=== PATIENT | female | born 1995 | race African-American/Black ===

== ENCOUNTER 2016-09-22 20:59 | Emergency (ER) ==
[2016-09-22] MEDS ORDERED: ATIVAN PO ONE (21:12)
--- NOTE | 2016-09-22 21:15 | PROVIDER DOCUMENTATION ---
HPI-Respiratory General - General Source: patient - History of Present Illness-Resp Quality of Pain: reports: none Severity in ED: reports: severe Onset/Duration: reports: just prior to arrival Timing: reports: still present Context: denies: recent foreign travel, sports/exercise Exposure: reports: unknown cause Cough Quality/Degree: reports: no cough Episode Frequency: no prior episodes Current Respiratory Medication Therapy: Initiated none Associated Symptoms: reports: shortness of breath. denies: cough, fever/chills , hurts to breathe Similar Symptoms Previously?: No Recently seen or treated by another doctor?: No <Jose Bautista - Last Filed: 09/22/16 21:11> <James Hensley - Last Filed: 09/22/16 22:14> - General Stated Complaint: SOB Time Seen by Provider: 09/22/16 21:11 Allergies/Adverse Reactions: Patient Allergies Allergy/AdvReac Type Severity Reaction Status Date / Time guaifenesin [From Robitussin] Allergy HIVES Verified 09/22/16 21:12 - History of Present Illness-Resp Nature of Presenting Problem: 20 y/o F presents to the ED by EMS with SOB. Sister states they were at [facility] when this began and she started breathing very fast then collapsed into her arms. (Jose Bautista) Review of Systems - Adult - REVIEW OF SYSTEMS - ADULT Constitutional: denies: chills, fever Eyes: reports: no symptoms reported Ears, Nose, Mouth & Throat: reports: no symptoms reported Cardiovascular: reports: no symptoms reported Respiratory: reports: shortness of breath. denies: cough, wheezing Gastrointestinal: reports: no symptoms reported Genitourinary: reports: no symptoms reported Musculoskeletal: reports: no symptoms reported Integumentary: reports: no symptoms reported Neurological: reports: other (collapsed). denies: dizziness/vertigo, headache/ migraines, loss of balance, slurred speech Psychiatric: reports: no symptoms reported Endocrine: reports: no symptoms reported Hematologic/Lymphatic: reports: no symptoms reported Allergic/Immunologic: reports: no symptoms reported All Other Systems: Reviewed and Negative <Jose Bautista - Last Filed: 09/22/16 21:11> Past History - Adult - PAST MEDICAL HISTORY-ADULT Review of Records: reports: Old Records Reviewed, Nursing Assessment Review, Medications Reviewed Major Childhood Illnesses: reports: denies history Cardiovascular: reports: denies history Respiratory: reports: denies history Other Conditions: reports: denies history - PRIOR SURGERIES/PROCEDURES Surgical/Procedure History: reports: none - PRIOR HOSPITALIZATIONS Prior Hospitalizations: reports: none - IMMUNIZATION STATUS Childhood Immunizations: See Nurse Assessment Flu Vaccine: See Nurse Assessment - FAMILY HISTORY Family History: reviewed, not pertinent - SOCIAL HISTORY Smoking: non-smoker Living Situation: family <Jose Bautista - Last Filed: 09/22/16 21:11> Physical Exam-General - PHYSICAL EXAM-ADULT Initial Vital Signs Reviewed: Yes - CONSTITUTIONAL General Appearance: appears well, alert, no apparent distress - EYES Eyes: PERRL/EOMI, pink conjunctivae - HEAD, EARS, NOSE, MOUTH & THROAT HENMT: moist mucous membranes, TMs normal, pharynx normal - NECK Neck: non-tender, full range of motion, supple, normal inspection - RESPIRATORY Respiratory: lungs clear, normal breath sounds, no respiratory distress, no accessory muscle use, increased rate - CARDIOVASCULAR Cardiovascular: normal peripheral pulses, regular rate, rhythm - GASTROINTESTINAL (ABDOMEN) Abdominal Exam: normal bowel sounds, non tender, soft - MUSCULOSKELETAL Back Exam: normal inspection, no CVA tenderness, no vertebral tenderness Extremity: normal range of motion, non-tender, normal gait, normal inspection - SKIN Integumentary: normal color, normal turgor, warm/dry - NEUROLOGIC Neurologic: grossly normal, no motor/sensory deficits - PSYCHIATRIC Psych/Mental Status: normal mood/affect, normal thought content, normal thought process, oriented x 3 <Jose Bautista - Last Filed: 09/22/16 21:11> Progress <Jose Bautista - Last Filed: 09/22/16 21:11> <James Hensley - Last Filed: 09/22/16 22:14> - PLAN OF CARE/RESULTS Progress/Plan/Lab Results: Vital Signs - 24 hr 09/22/16 21:00 Temperature 98.3 F Pulse Rate 101 H Respiratory 36 H Rate Blood Pressure 100/63 O2 Sat by Pulse 100 Oximetry (James Hensley) Departure <Jose Bautista - Last Filed: 09/22/16 21:11> - Departure Time of Disposition Order: 22:13 Certified Medical Emergency: Emergent <James Hensley - Last Filed: 09/22/16 22:14> - Departure DIAGNOSIS: Hyperventilating Disposition: HOME 01 Condition: Stable Additional Instructions: ED Follow Up Instructions: You have been treated by a care provider in the Emergency Department. These instructions are being provided to you so you can have an understanding of how to care for yourself upon discharge. Upon discharge from the Emergency Department, you are responsible for making arrangements for follow-up care by a physician of your choice. Take all prescribed medications as directed. Return to the Emergency Department immediately for any new or worsening symptoms. You may call the Physician Referral phone number at [phone] to obtain a list of Physicians who are taking new patients. Attestation - Scribe Verification/Attestation Scribe:: Jose Bautista Acting as Scribe for:: James Hensley Scribe documention review:: This chart was documented by a scribe and accurately reflects the service the provider performed and the decisions made by the provider. <Jose Bautista - Last Filed: 09/22/16 21:11> Physician Attestation
[2016-09-22] MEDS ORDERED: TYLENOL PO ONE (21:31)
[2016-09-22 21:54] LABS: UR AMPHETAMINES QUAL NONE DETECTED (NONE DETECT); UR BARBITUATES QUAL NONE DETECTED (NONE DETECT); UR BENZODIAZEPIN QUAL NONE DETECTED (NONE DETECT); UR CANNABINOIDS QUAL NONE DETECTED (NONE DETECT); UR COCAINE QUAL NONE DETECTED (NONE DETECT); UR MDMA QUAL NONE DETECTED (NONE DETECT); UR METHADONE QUAL NONE DETECTED (NONE DETECT); UR METHAMPHETAMINE QUAL NONE DETECTED (NONE DETECT); UR OPIATES QUAL NONE DETECTED (NONE DETECT); UR OXYCODONE QUAL NONE DETECTED (NONE DETECT); UR PCP QUAL NONE DETECTED (NONE DETECT); UR TCA QUAL NONE DETECTED (NONE DETECT)
[2016-09-22 22:26] VITALS: BP 90/51
== END 2016-09-22 22:27 | disposition home or self-care (01) ==
LOC: P.ED 20:59
DX: R06.4 Hyperventilation (principal); R06.02 Shortness of breath
CPT/HCPCS: 80305; 81025; 99283

== ENCOUNTER 2018-11-06 22:45 | Inpatient (IN) ==
[2018-11-06] MEDS ORDERED: NS 1,000 ML ONE (23:09)
[2018-11-06] MEDS ORDERED: NS 1,000 ML IV ONE (23:11)
[2018-11-06 23:40] LABS: BILIRUBIN URINE NEGATIVE (NEGATIVE); BLOOD URINE 3+ (NEGATIVE); CLARITY SL. CLOUDY (CLEAR); COLOR YELLOW; GLUCOSE URINE NEGATIVE (NEGATIVE); KETONE URINE 3+(Large) mg/dL (NEGATIVE); LEUKOCYTES URINE TRACE (NEGATIVE); NITRITE URINE NEGATIVE (NEGATIVE); PH URINE 6.5; PROTEIN URINE 2+(100 mg/dL) mg/dL (NEGATIVE); SP GRAVITY URINE 1.015; UROBILINOGEN URINE 1 mg/dL
[2018-11-06 23:41] LABS: BASO# 0.01 X1000 (0.0-0.2); BASO% 0.1 % (0.0-0.8); EOS# 0.01 X1000 (0.0-0.7); EOS% 0.1 % (0.0-10.0); HEMATOCRIT 33.9 % (37.0-47.0); HEMOGLOBIN 11.3 g/dL (12.0-16.0); IMM GRAN# 0.02 X1000 (0.0-0.04); IMM GRAN% 0.2 % (0.0-0.5); LYMPH# 0.81 X1000 (1.2-3.4); LYMPH% 7.3 % (20.5-51.1); MCH 30.8 PG (27-31); MCHC 33.3 g/dL (33-37); MCV 92.4 FL (81-99); MONO# 0.81 X1000 (0.11-0.59); MONO% 7.3 % (1.7-9.3); MPV 10.1 FL (7.4-10.4); NEUT# 9.42 X1000 (1.4-6.5); PLT 213 X1000 (130-400); RBC 3.67 XMIL (4.2-5.4); RDW 12.6 % (11.5-14.5); WBC 11.08 X1000 (4.8-10.8)
[2018-11-06] MEDS ORDERED: TYLENOL PO ONE (23:44)
[2018-11-06 23:47] LABS: AGAP 10; ALBUMIN 3.8 g/dL (3.5-5.0); ALKALINE PHOSPHATASE 73 U/L (32-104); BUN 8 mg/dL (8-22); CALCIUM 8.1 mg/dL (8.8-10.2); CHLORIDE 97 mmol/L (98-107); COSMO 262; CREATININE 0.6 mg/dL (0.5-0.9); ESTIMATED GFR > 60; GLUCOSE 121 mg/dL (70-104); GOT 16 U/L (10-30); GPT 12 U/L (10-36); POTASSIUM 3.6 mmol/L (3.5-5.1); SODIUM 131 mmol/L (136-145); TCO2 24 mmol/L (25-35); TOTAL PROTEIN 7.8 g/dL (6.3-8.3); URINE BACTERIA 3+ /HFP; URINE EPITHELIAL CELLS <10 /HPF (<10); URINE WBC <10 /HPF (<10)
[2018-11-06 23:48] LABS: URINE SOURCE CLEAN CATCH
[2018-11-06 23:58] LABS: INFLUENZA A NEGATIVE (NEGATIVE); INFLUENZA B NEGATIVE (NEGATIVE)
[2018-11-07] MEDS ORDERED: NS 1,000 ML IV ONE (00:04)
[2018-11-07] MEDS ORDERED: MOTRIN PO ONE (00:21)
--- NOTE | 2018-11-07 00:32 | PROVIDER DOCUMENTATION ---
This chart was entered by Ynes Dobson Scribe, acting as scribe for Durga Boss CRNP. HPI-General Adult - General Chief Complaint: Flu Symptoms Stated Complaint: FLU LIKE SX Time Seen by Provider: 11/07/18 00:10 Source: patient Allergies/Adverse Reactions: Patient Allergies Allergy/AdvReac Type Severity Reaction Status Date / Time guaifenesin [From Robitussin] Allergy HIVES Verified 11/06/18 23:07 Home Medications: Home Medication List Medication Instructions Recorded Confirmed Last Taken Type Vit #76/Iron,Carb/FA 1 tab PO DAILY 02/15/18 06/13/18 06/12/18 09:00 History [Prenatabs Rx Tablet] Lansoprazole [Prevacid] 30 mg PO DAILY #30 capsule. 06/13/18 Unknown Rx Amoxicillin 500 mg PO TID #30 cap 09/22/18 Unknown Rx Ibuprofen [Motrin] 600 mg PO Q6-8H PRN PRN #30 tab 09/22/18 Unknown Rx Prednisone 20 mg PO BID #10 tab 09/22/18 Unknown Rx - History of Present Illness -Gen Adult Nature of Presenting Problems: pt is a 23 yr old female presenting with 3 day complaint of fever/chills, cough, sore throat, weakness, and body aches. pt denies sick exposures, no improvement with Motrin or Theraflu Location of Pain/Injury: reports: generalized Pain Radiation: reports: no radiation Quality of Pain: reports: aching Severity: reports: moderate Onset/Duration: reports: 3 days ago Timing: reports: still present Context/Activities at Onset: reports: light activity Modifying Factors: improves with: analgesics (motrin-no change), other medication (theraflu-no change) Associated Symptoms: reports: cough, EENT symptoms, fatigue, fever/chills, loss of appetite, muscle aches, weakness. denies: genitourinary problems, vomiting Similar Symptoms Previously?: No Recently seen or treated by another doctor?: No Review of Systems - Adult - REVIEW OF SYSTEMS - ADULT Constitutional: reports: chills, fever, fatique Eyes: denies: discharge, redness Ears, Nose, Mouth & Throat: reports: sinus problem, throat pain. denies: ear pain Cardiovascular: denies: chest pain, palpitations, syncope Respiratory: reports: cough. denies: shortness of breath, wheezing Gastrointestinal: reports: poor appetite. denies: abdominal pain, diarrhea, nausea, vomiting Genitourinary: denies: dysuria, frequency, flank pain Musculoskeletal: reports: muscle aches, muscle weakness. denies: back pain, neck pain Integumentary: denies: itching, rash, skin sores/ulcer Neurological: denies: dizziness/vertigo, headache/migraines, numbness, seizure, syncope Psychiatric: reports: no symptoms reported Endocrine: reports: no symptoms reported Hematologic/Lymphatic: reports: no symptoms reported Allergic/Immunologic: reports: no symptoms reported All Other Systems: Reviewed and Negative Past History - Adult - PAST MEDICAL HISTORY-ADULT Review of Records: reports: Old Records Reviewed, Nursing Assessment Review, Medications Reviewed, Social history reviewed & non-contributory. Major Childhood Illnesses: reports: denies history Cardiovascular: reports: denies history Respiratory: reports: denies history Gastrointestinal: reports: denies history Obstetrical/Gynecological: reports: denies history Genitourinary: reports: denies history Musculoskeletal: reports: denies history Neurological: reports: denies history Psychiatric: reports: denies history Endocrine/Immune: reports: denies history Other Conditions: reports: denies history - PRIOR SURGERIES/PROCEDURES Surgical/Procedure History: reports: none - PRIOR HOSPITALIZATIONS Prior Hospitalizations: reports: none - IMMUNIZATION STATUS Childhood Immunizations: See Nurse Assessment Flu Vaccine: See Nurse Assessment - FAMILY HISTORY Family History: reviewed, not pertinent - SOCIAL HISTORY Living Situation: family Physical Exam-General - PHYSICAL EXAM-ADULT Initial Vital Signs Reviewed: Yes - CONSTITUTIONAL General Appearance: alert, no apparent distress - EYES Eyes: PERRL/EOMI - HEAD, EARS, NOSE, MOUTH & THROAT HENMT: normocephalic/atraumatic, moist mucous membranes, TMs normal, pharyngeal erythema (mild) - NECK Neck: non-tender, full range of motion, supple, normal inspection - RESPIRATORY Respiratory: chest non-tender, lungs clear, normal breath sounds - CARDIOVASCULAR Cardiovascular: normal peripheral pulses, tachycardia - GASTROINTESTINAL (ABDOMEN) Abdominal Exam: normal bowel sounds, non tender, soft - LYMPHATIC Lymphatic: no adenopathy - MUSCULOSKELETAL Back Exam: normal inspection, no CVA tenderness, no vertebral tenderness Extremity: normal range of motion, non-tender, normal inspection - SKIN Integumentary: normal color, normal turgor, other (hot to touch) - NEUROLOGIC Neurologic: grossly normal, no motor/sensory deficits - PSYCHIATRIC Psych/Mental Status: normal mood/affect Progress - PLAN OF CARE/RESULTS Progress/Plan/Lab Results: Vital Signs - 8 hr 11/06/18 23:03 11/06/18 23:47 Temperature 103.2 F H Pulse Rate 132 H 125 H Respiratory Rate 26 H 19 Blood Pressure 86/40 118/62 O2 Sat by Pulse Oximetry 97 100 Bedside Urine ED: Urine Bedside Start: 11/06/18 23:20 Freq: ORDERED Status: Active Protocol: Activity Type Activity Date Activity User E-Sign Co-Sign Detail Recorded Client Recorded Date Recorded By Document 11/06/18 23:26 [id number] 11/06/18 23:26 [id number] 11/06/18 23:26 Point of Care [Bedside Point of Care] -Lot # [id number] - Results Negative -Control Line Visible? Yes Laboratory Results - last 24 hr 11/06/18 11/06/18 11/06/18 23:15 23:15 23:15 WBC 11.08 H RBC 3.67 L Hgb 11.3 L Hct 33.9 L MCV 92.4 MCH 30.8 MCHC 33.3 RDW Std Deviation 12.6 Plt Count 213 MPV 10.1 Immature Gran % (Auto) 0.2 Neut % (Auto) 85.0 H Lymph % (Auto) 7.3 L [place] % (Auto) 7.3 Eos % (Auto) 0.1 Baso % (Auto) 0.1 Immature Gran # (Auto) 0.02 Neut # (Auto) 9.42 H Lymph # (Auto) 0.81 L [place] # (Auto) 0.81 H Eos # (Auto) 0.01 Baso # (Auto) 0.01 Sodium 131 L Potassium 3.6 Chloride 97 L Carbon Dioxide 24 L Anion Gap 10 BUN 8 Creatinine 0.6 Estimated GFR/1.73 m2 > 60 BUN/Creatinine Ratio 13 Glucose 121 H Calculated Osmolality 262 Calcium 8.1 L Total Bilirubin 0.30 AST 16 ALT 12 Alkaline Phosphatase 73 Total Protein 7.8 Albumin 3.8 Globulin 4.0 Albumin/Globulin Ratio 1.0 Plasma Lactate 0.9 Urine Source Urine Color Urine Clarity Urine pH Ur Specific [place] Urine Protein Urine Ketones Urine Blood Urine Nitrite Urine Bilirubin Urine Urobilinogen Urine Microscopic RBC Urine WBC Urine Microscopic WBC Ur Epithelial Cells Urine Bacteria Urine Glucose Influenza A (Rapid) Influenza B (Rapid) 11/06/18 11/06/18 23:15 23:20 WBC RBC Hgb Hct MCV MCH MCHC RDW Std Deviation Plt Count MPV Immature Gran % (Auto) Neut % (Auto) Lymph % (Auto) [place] % (Auto) Eos % (Auto) Baso % (Auto) Immature Gran # (Auto) Neut # (Auto) Lymph # (Auto) [place] # (Auto) Eos # (Auto) Baso # (Auto) Sodium Potassium Chloride Carbon Dioxide Anion Gap BUN Creatinine Estimated GFR/1.73 m2 BUN/Creatinine Ratio Glucose Calculated Osmolality Calcium Total Bilirubin AST ALT Alkaline Phosphatase Total Protein Albumin Globulin Albumin/Globulin Ratio Plasma Lactate Urine Source CLEAN CATCH Urine Color YELLOW Urine Clarity SL. CLOUDY A Urine pH 6.5 Ur Specific [place] 1.015 Urine Protein 2+(100 mg/dL) A Urine Ketones 3+(Large) A Urine Blood 3+ A Urine Nitrite NEGATIVE Urine Bilirubin NEGATIVE Urine Urobilinogen 1 Urine Microscopic RBC 10-20 A Urine WBC TRACE A Urine Microscopic WBC <10 Ur Epithelial Cells <10 Urine Bacteria 3+ Urine Glucose NEGATIVE Influenza A (Rapid) NEGATIVE Influenza B (Rapid) NEGATIVE Orders Category Date Time Status ED: Urine Bedside ORDERED Care 11/06/18 23:20 Active IV Insertion ORDERED Care 11/06/18 23:20 Active CHEST-2 VIEWS [RAD] Stat Exams 11/07/18 00:18 Ordered CBC WITH DIFF [HEME] Stat Lab 11/06/18 23:15 Completed COMPREHENSIVE METABOLIC PANEL [CHEM] Stat Lab 11/06/18 23:[address] Stat Lab 11/07/18 00:[address] Stat Lab 11/06/18 23:20 Completed LACTATE, PLASMA [CHEM] Stat Lab 11/06/18 23:[address] W/POSS RFLX CULT [URINALYSIS] Stat Lab 11/06/18 23:15 Completed URINE CULTURE [RM] Routine Lab 11/06/18 23:48 Ordered 0.9% Sodium Chloride Inj [Ns] 1,000 ml Med 11/06/18 23:09 Discontinued .ROUTE As directed 0.9% Sodium Chloride Inj [Ns] 1,000 ml Med 04/15/19 23:11 Discontinued IV 999 mls/hr 0.9% Sodium Chloride Inj [Ns] 1,000 ml Med 11/07/18 00:04 Active IV 999 mls/hr Acetaminophen [Tylenol] Med 11/06/18 23:44 Discontinued 1,000 mg PO NOW ONE Ibuprofen [Motrin] Med 11/07/18 00:21 Discontinued 600 mg PO NOW ONE Result Diagrams: 11/06/18 23:15 11/06/18 23:15 - CONSULTS/PCP/HOSPITALIST Notification #1 *Consult/PCP/Hospitalist*: Dr Schuster Time Discussed: 00:30 Reason/Comments: plan of care for pt admit Consult Disposition: Admit Departure - Departure Date of Disposition Decision: 11/07/18 Time of Disposition Decision: 00:31 DIAGNOSIS: Fever, Proteinuria, SIRS (systemic inflammatory response syndrome) Disposition: ADMITTED INPATIENT 09 Certified Medical Emergency: Emergent Condition: Stable Referrals and Follow-Ups: None,PCP [Primary Care Provider] - - Critical Care Note This patient required my direct & personal management of CC.: No Attestation - Physician/ EMMA Attestation Patient care was provided by Advanced Practice Provider:: Yes Advanced Practice Provider:: Durga Boss Advanced Practice Provider documentation review:: The Mid-level provider documentation, treatment plan and medical decision making was reviewed by the physician who agrees with all treatment and medical decision making by the MLP. The physician spent face to face time with patient:: No Advanced Practice Provider documentation review:: Supervising physician onsite and consulted in the evaluation and care of this patient. The physician did not have a face to face encounter with the patient. This chart was documented by the indicated scribe, (Ynes Dobson Scribe) and accurately reflects the services I performed and decisions made by me, Nadira Boss CRNP, as attested by the provider's signature.
[2018-11-07] MEDS ORDERED: DOXYCYCLINE 100 MG in NS 250 ML IV ONE (00:35)
--- NOTE | 2018-11-07 05:21 | Diag Imaging Result Doc PS360 ---
EXAM: CHEST-2 VIEWS HISTORY: fever, cough TECHNIQUE: Two views COMPARISON: 06/29/2017 FINDINGS: The lungs are well expanded. The heart is not enlarged. The vessels are not distended. There are no infiltrates. No pleural effusions. IMPRESSION: No pneumonia. Electronically signed by Mo Carvalho 11/07/2018 5:18 AM
[2018-11-07] MEDS ORDERED: ZOFRAN IV PRN (08:18)
[2018-11-07] MEDS: ZOSYN 3.375 GM in NS 50 ML IV SCH ×4 (08:58→21:07)
[2018-11-07] MEDS: TAMIFLU PO SCH ×2 (08:58→21:07)
--- NOTE | 2018-11-07 12:06 | HISTORY AND PHYSICAL ---
CHIEF COMPLAINT: Fever, chills, sore throat, generalized weakness and body aches. HISTORY OF PRESENT ILLNESS: This is a 23-year-old female who presented to the emergency room complaining of 3 days of fever, chills, generalized weakness, sore throat, cough that has progressively increased despite taking Motrin and Theraflu. She denies any known sick contacts. Influenza A, B and rapid strep were negative. She did have a temperature of a 103.2 degrees with a blood pressure of 86/40 on arrival to the emergency room. She was given IV hydration as well as doxycycline and Motrin and she is being admitted for further evaluation and treatment. PAST MEDICAL HISTORY: Iron deficiency anemia. PAST SURGICAL HISTORY: section. SOCIAL HISTORY: She denies any alcohol, tobacco or illicit drug use. ALLERGIES: Guaifenesin which causes hives. HOME MEDICATIONS: The patient is on no regular medications. REVIEW OF SYSTEMS: Discussed with patient with pertinent positives stated in the history of present illness. She denied any syncope, dizziness, any chest pain or palpitations, any shortness of breath, any nausea, vomiting, diarrhea, constipation, black or bloody vomitus or stools, any hematuria, dysuria, frequency, urgency. PHYSICAL EXAMINATION: GENERAL: This is a 23-year-old female who is lying in the bed in no distress. VITAL SIGNS: Blood pressure is 109/60 with heart rate of 79, respirations 16, temperature is 97.6 degrees oral with room air saturations 98-100%. EYES: Pupils are equal, round, react to light. EOMs are intact. Sclerae are anicteric. HEENT: Head is normocephalic, atraumatic. Mucous membranes are moist. NECK: Supple, trachea midline. CARDIOVASCULAR: Regular rate and rhythm. S1 and S2 appreciated. She has no lower extremity edema. Peripheral pulses are palpable x4 extremities. Calves are nontender to palpation. GASTROINTESTINAL: Abdomen soft, nontender, nondistended. Bowel sounds in all 4 quadrants. GENITOURINARY: She has no CVA nor suprapubic tenderness. NEUROLOGIC: She is alert and oriented x3. SKIN: Warm and dry. LABORATORIES: WBC is 11 with hemoglobin 11.3, hematocrit 33.9, and platelets 213,000. Sodium 131, potassium 3.6, BUN 8, creatinine 0.6 with a glucose of 121. Influenza A and B are negative. Group A strep rapid is negative. Urinalysis reveals 2+ protein with 3+ ketones, 3+ blood with 10 to 20 microscopic red blood cells and trace microscopic white blood cells. Urine culture is pending. ASSESSMENT AND PLAN: 1. Systemic inflammatory response syndrome. 2. Fever. 3. Proteinuria. 4. Leukocytosis. PLAN: The patient has been admitted to the medical-surgical floor. We will continue with IV hydration, giving Zofran for nausea. We will start Zosyn for antibiotic coverage. The patient does have proteinuria. In reviewing her past history, she has noted to have proteinuria in our records since 2013. She denies any prior workup or mention. She does take routine NSAIDs and has for quite some time. I did discuss with the patient the importance of stopping these. We will obtain a SPEP and further treatment will depend on results. We will repeat a CBC with differential, as well as a CMP in the morning. Further treatments pending hospital course. Dictated by SIDRA Corbin for Quan Schuster MD cc: SIDRA Corbin MD
[2018-11-07 12:14] LABS: HEMOGLOBIN A1C 5.4 % (4.8-6.0)
[2018-11-07] MEDS: NS 1,000 ML IV SCH (13:18)
[2018-11-07] MEDS: TYLENOL PO PRN ×2 (14:09→21:07)
--- NOTE | 2018-11-07 19:52 | HISTORY AND PHYSICAL ---
Patient seen and examined. Full note dictated by nurse practitioner. Patient has had a fever of 103. States that she has felt bad with muscle aches, cough, congestion, and shortness of breath for the past couple of days. We will admit her to the hospital. Even though her flu test was negative, we are going to treat her for the fluoroscopic, given her symptoms, and place her on antibiotics, and will follow with you. cc: Quan Schuster MD
[2018-11-07] MEDS ORDERED: DULCOLAX PR ONE (20:24)
[2018-11-08] MEDS: ZOSYN 3.375 GM in NS 50 ML IV SCH ×3 (02:48→15:53)
[2018-11-08 06:03] LABS: BASO# 0.01 X1000 (0.0-0.2); BASO% 0.2 % (0.0-0.8); EOS# 0.01 X1000 (0.0-0.7); EOS% 0.2 % (0.0-10.0); HEMATOCRIT 30.1 % (37.0-47.0); HEMOGLOBIN 9.6 g/dL (12.0-16.0); IMM GRAN# 0.01 X1000 (0.0-0.04); IMM GRAN% 0.2 % (0.0-0.5); LYMPH# 1.54 X1000 (1.2-3.4); LYMPH% 27.6 % (20.5-51.1); MCH 29.7 PG (27-31); MCHC 31.9 g/dL (33-37); MCV 93.2 FL (81-99); MONO# 0.65 X1000 (0.11-0.59); MONO% 11.7 % (1.7-9.3); MPV 10.2 FL (7.4-10.4); NEUT# 3.35 X1000 (1.4-6.5); NEUT% 60.1 % (42.2-75.2); PLT 182 X1000 (130-400); RBC 3.23 XMIL (4.2-5.4); RDW 12.6 % (11.5-14.5); WBC 5.57 X1000 (4.8-10.8)
[2018-11-08 06:20] LABS: AGAP 8; ALBUMIN 2.7 g/dL (3.5-5.0); ALKALINE PHOSPHATASE 51 U/L (32-104); BUN 4 mg/dL (8-22); CALCIUM 7.3 mg/dL (8.8-10.2); CHLORIDE 109 mmol/L (98-107); COSMO 279; CREATININE 0.5 mg/dL (0.5-0.9); ESTIMATED GFR > 60; GLUCOSE 118 mg/dL (70-104); GOT 14 U/L (10-30); GPT 9 U/L (10-36); POTASSIUM 3.7 mmol/L (3.5-5.1); SODIUM 141 mmol/L (136-145); TCO2 24 mmol/L (25-35); TOTAL PROTEIN 5.9 g/dL (6.3-8.3)
[2018-11-08] MEDS: NS 1,000 ML IV SCH (06:20)
[2018-11-08] MEDS ORDERED: PRILOSEC PO SCH (07:00)
[2018-11-08] MEDS: TAMIFLU PO SCH (10:10)
[2018-11-08 16:30] VITALS: BP 112/64
--- NOTE | 2018-11-09 04:38 | DISCHARGE SUMMARY ---
ADMISSION DATE: 11/07/2018 DISCHARGE DATE: 11/08/2018 DISCHARGE DIAGNOSIS: 1. Febrile illness, appears to have resolved. I expect this is likely secondary to a virus. 2. Proteinuria. Peripheral smear demonstrates acute inflammatory response. 3. Systemic inflammatory response syndrome, resolved. 4. Fever, resolved. 5. Leukocytosis, resolved. 6. Anemia of chronic disease, stable. CONSULTATIONS: None. PROCEDURES: None. BRIEF HOSPITAL COURSE: Patient is a 23-year-old female who presented to the hospital with marked elevated temperatures at 103. Thankfully, this continued to improve. She was placed on Tamiflu even though her tests were negative. She certainly looked like the flu with ashen color and muscle aches. Thankfully, she had an uneventful hospital course. Her fever continued to defervesce. On discharge, she is ambulating without an difficulty. She is asking to go home. She is eating and drinking as well as her fever is gone. Cough, congestion are gone. Muscle aches are gone. ASSESSMENT: Febrile illness of undetermined origin, most likely the flu, although her test was negative. Symptoms did seem to improve after Tamiflu. cc: Quan Schuster MD
[2018-11-09 13:22] LABS: LYME DISEASE SCREEN SEE COMMENTS
== END 2018-11-08 20:22 | disposition home or self-care (01) | DRG 153 ==
LOC: P.ED 22:45 → P.MEDSURG 11-07 01:23
PROVIDERS: ATTEND Family Medicine
CPT/HCPCS: 71020; 71046; 80053; 81001; 83036; 83605; 84155; 84165; 85025; 86308; 86618; 87081; 87088; 87275; 87276; 87430; 87804; A9270; J2543; J7030; J7050